=== PATIENT | female | born 2000 | race Hispanic/Latino ===

== ENCOUNTER 2022-06-01 21:06 | Emergency (ER) | payer MEDICAID, OTHER ==
[~2022-06-01] VITALS: Ht 154.9 cm; Wt 67.1 kg
[2022-06-01 21:08] VITALS: BP 154/82
[2022-06-01] MEDS ORDERED: DICL50TA9 PO (21:53)
== END 2022-06-01 22:05 | disposition home or self-care (01) ==
LOC: EDH 21:06
DX: S60.131A Contusion of right middle finger with damage to nail, initial encounter (principal); W23.2XXA Caught, crushed, jammed or pinched between a moving and stationary object, initial encounter; Y93.89 Activity, other specified; Y92.89 Other specified places as the place of occurrence of the external cause; Y99.8 Other external cause status
CPT/HCPCS: 11740; 73130

== ENCOUNTER 2022-06-02 20:54 | Emergency (ER) | payer OTHER ==
[~2022-06-02] VITALS: Ht 154.9 cm; Wt 69.4 kg
[~2022-06-02 20:54] MED LIST: DICL50TA9 PO
[2022-06-02 20:55] VITALS: BP 136/74
[2022-06-02] MEDS ORDERED: IBUPROFEN 800 MG TAB ONE (21:49)
[2022-06-02] MEDS ORDERED: IBUPROFEN 800 MG TAB PO ONE (22:00)
== END 2022-06-02 21:58 | disposition home or self-care (01) ==
LOC: EDH 20:54
DX: S60.131A Contusion of right middle finger with damage to nail, initial encounter (principal); Z79.1 Long term (current) use of non-steroidal anti-inflammatories (NSAID); X58.XXXA Exposure to other specified factors, initial encounter; Y93.89 Activity, other specified; Y92.89 Other specified places as the place of occurrence of the external cause; Y99.8 Other external cause status
CPT/HCPCS: 11740